=== PATIENT | female | born 1995 | race African-American/Black ===

== ENCOUNTER 2017-04-25 15:56 | Emergency (ER) | payer OTHER, SELFPAY ==
--- NOTE | 2017-04-25 16:40 | RAD ---
RADIOGRAPH CHEST 1 VIEW: HISTORY: 21-year-old female with sharp midsternal chest pain. FINDINGS: There are no air space densities, pulmonary edema, pneumothorax, or cardiomegaly. The lateral costop hrenic angles are sharp. IMPRESSION: No acute cardiopulmonary findings. mary anne POS: DIAN
[2017-04-25] MEDS ORDERED: Ketorolac Tromethamine 30 MG/ML VIAL ONE (17:40)
--- NOTE | 2017-05-27 13:04 | EKG ---
Test Reason : CHEST PAIN Blood Pressure : / mmHG Vent. Rate : 098 BPM Atrial Rate : 098 BPM P-R Int : 128 ms QRS Dur : 066 ms QT Int : 332 ms P-R-T Axes : 065 073 041 degrees QTc Int : 423 ms Normal sinus rhythm Normal ECG Confirmed by FRANKO ROSENTHAL DO ([id number]), editor farm journal LILO DENNEY ([id number]) on 05/27/2017 1:03:42 PM Referred By: Confirmed By:FRANKO ROSENTHAL DO
== END 2017-04-25 18:19 | disposition home or self-care (01) ==
LOC: ERS 15:56
DX: R07.89 Other chest pain (principal); F41.9 Anxiety disorder, unspecified; F17.210 Nicotine dependence, cigarettes, uncomplicated
CPT/HCPCS: 71010; 93005; 96372; 99406; J1885

== ENCOUNTER 2017-10-25 15:24 | Emergency (ER) | payer SELFPAY | END 2017-10-25 16:10 | disposition home or self-care (01) | LOC: ERS 15:24 | DX: L73.2 Hidradenitis suppurativa (principal); F41.9 Anxiety disorder, unspecified; F17.210 Nicotine dependence, cigarettes, uncomplicated | CPT/HCPCS: 10160 ==